=== PATIENT | female | born 1955 | race African-American/Black ===

== ENCOUNTER 2016-11-12 19:09 | Emergency (ER) | payer BC, OTHER ==
[~2016-11-12] VITALS: Ht 160 cm; Wt 91.6 kg
--- NOTE | ~2016-11-12 | EKG ---
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: CHAYITO : 1955 Requested By: Keith Heller Order Number: [id number] MD: Jose Antonio Reese Measurements Intervals [place] Rate: 84 P: 64 [place]: 129 QRS: 55 QRSD: 90 T: 30 QT: 374 QTc: 443 Interpretive Statements Sinus rhythm Nonspecific T wave abnormality Compared to ECG 09/12/2016 20:14:01 no significant change was found Electronically Signed On 11-13-2016 8:03:46 [employer] by Jose Antonio Reese [email or web address] <ELECTRONICALLY SIGNED> By: Jose Antonio Reese MD, [facility] 11/13/16 [id number] Jose Antonio Reese MD, FACC /EPI
[~2016-11-12 19:09] MED LIST: ATORVASTATIN CA40 MG PO; AUGMENTIN 875875 MG PO; FLEXERIL PO; IBUPROFEN 800800 M1 PO; MEDROL DOSPAK21 TA1; NOHOMEMEDICATIONS; NORCO 5-325 TA1 EACH PO; PERCOCET 5-3251 EACH PO; PRILOSEC 10MG C10 MG PO; PROTONIX40 M2 PO; SUDAFED PE SIN1 EACH PO; ZPAK PO
[2016-11-12 19:36] LABS: ABSOLUTE NEUTROPHILS 3.3 thou/uL (1.4-8.2); BASOPHILS 0.2 % (0.0-2.0); HEMATOCRIT 44.4 % (37.0-47.0); HEMOGLOBIN 14.9 gm/dL (12.0-15.0); LYMPHOCYTES 35.2 % (24.0-44.0); MCH 28.5 pg (26.0-34.0); MCHC 33.5 % (28.0-37.0); MCV 85.1 fL (80.0-100.0); MONOCYTES 6.8 % (1.0-8.0); PLATELET COUNT 249 thou/uL (150-400); POLYS 55.8 % (36.0-66.0); RBC 5.22 mil/uL (4.20-5.00); RDW 13.6 % (10.5-14.5)
[2016-11-12 19:37] LABS: MANUAL DIFF NO
[2016-11-12 19:49] LABS: ANION GAP 7 mmol/L (7-16); BUN 17 mg/dL (7-18); CALCIUM 9.1 mg/dL (8.5-10.1); CHLORIDE 105 mmol/L (98-107); CO2 29 mmol/L (21-32); CREATININE 1.1 mg/dL (0.6-1.3); GLUCOSE 102 mg/dL (70-99); POTASSIUM 3.9 mmol/L (3.5-5.1); SODIUM 141 mmol/L (136-145)
[2016-11-12 19:54] LABS: ALBUMIN 3.6 g/dL (3.4-5.0); ALKALINE PHOSPHATASE 86 U/L (46-116); DIRECT BILIRUBIN < 0.1 mg/dL (<0.1-0.3); SGOT 20 U/L (15-37); SGPT 33 U/L (30-65); TOTAL BILIRUBIN 0.3 mg/dL (<0.1-1.0)
[2016-11-12 20:19] LABS: URINE BILIRUBIN NEGATIVE (Negative); URINE BLOOD NEGATIVE (Negative); URINE COLOR YELLOW; URINE GLUCOSE-RANDOM* NEGATIVE (Negative); URINE KETONES TRACE (Negative); URINE LEUKOCYTES-REFLEX NEGATIVE (Negative); URINE PROTEIN (DIPSTICK) NEGATIVE (Negative); URINE SPECIFIC GRAVITY >= 1.030 (1.003-1.035); URINE UROBILINOGEN 0.2 E.U./dl (0.2-1.0)
[2016-11-12 20:26] VITALS: BP 130/71
== END 2016-11-12 20:54 | disposition home or self-care (01) ==
LOC: ER 19:09
PROVIDERS: Physician Assistant
DX: R42 Dizziness and giddiness (principal); E86.0 Dehydration; R53.1 Weakness; H53.8 Other visual disturbances; M25.512 Pain in left shoulder; R10.13 Epigastric pain